=== PATIENT | male | born 1980 | race Caucasian/White ===

== ENCOUNTER → 2017-09-30 19:30 | Emergency (ER) | payer SELFPAY ==
--- NOTE | 2017-09-30 21:24 | ED.ADGEN ---
Adult General Chief Complaint Chief Complaint - Pt. left without checkin- HPI HPI Patient is a 37 year old male who presented to ED for a work excuse. Pt. had missed work for approximately 1 week. As pt was checking in he learned would be charged a ER fee. Pt. then decided not to check in and stated he would see his own doctor. Pt. then left the front desk lead check in, and never completing check in or seeing nursing or physician. See desk pens assembler for additional information. Review of Systems Review of Systems ROS not completed Physical Exam Physical Exam Pt. not seen EKG EKG [] Radiology/Procedures Radiology/Procedures [] Course & Med Decision Making Course & Med Decision Making Pertinent Labs and Imaging studies reviewed. (See chart for details) Pt. did not see medical staff , nursing or myself. Pt. left ambulatory without problem reportedly per front desk lead. [] Final Impression Final Impression 1. Request for work excuse. [] Dragon Disclaimer Dragon Disclaimer This electronic medical record was generated, in whole or in part, using a voice recognition dictation system. PAUL CAMARGO MD Sep 30, 2017 21:24
== END | disposition left against medical advice (07) ==
LOC: ER 19:30
DX: Z02.79 Encounter for issue of other medical certificate (principal); Z53.21 Procedure and treatment not carried out due to patient leaving prior to being seen by health care provider